=== PATIENT | male | born 1945 | race Caucasian/White ===

== ENCOUNTER 2023-12-26 10:01 | Outpatient (OUT) | payer MEDICARE, BC, SELFPAY ==
--- NOTE | 2023-12-23 13:13 | VEINCLINIC_ITS ---
Vital Signs 12/26/23 10:21 Height 5 ft 8 in Weight 95.254 kg BMI 31.9 BP 142/70 H BP Location Left Brachial BP Position Sitting BP Cuff Size Adult BP Source Manual Cuff Respiration 16 Pulse 65 Pulse Source Monitor Pulse Oximetry (%) 95 Oxygen Delivery Method Room Air Comment The patient's blood pressure is elevated. Varicose Veins Patient is an 78 year old male referred by Tyron Hoff NP at Dr. Hoyt's office secondary to venous insufficiency. Patient c/o bilateral leg edema. Patient denies pain or heaviness. Patient states the swelling has been happening for approximately one year. Patient has recently been seen by [facility] where he was administered bilateral leg compression stockings along with other compression devices. Patient states he then developed a wound to the right lower leg and was unable to wear the stockings due to wounds. Fuentes Mehta MD personally performed the services described in this documentation, as scribed by Carlos Castano RN in my presence and it is both accurate and complete. ICarlos RN, am scribing for, and in the presence of, Dr. Fuentes Hernandez and in the presence of the patient. . thigh: bilateral (edema is bilateral), knee: bilateral, calf: bilateral, ankle: bilateral and lynn: bilateral other (Patient denies pain/achiness) standing and sitting Reports edema and leg edema History of lower extremity trauma: No Superficial thrombophlebitis: No Family history of varicose veins: no Has patient had previous lower extremity venous surgery: No Patient has previously received the following treatment(s) for lower extremity varicose veins: Reports none Does patient have a history of : not applicable Has patient had lower extremity venous scan with relux testing: No Support hose used: Yes Problems walking or doing physical activity: No How does it affect you: edema led to wounds Do you walk much: Yes Do you stand much: Yes Review of Systems 2 ROS Narrative Fuentes Mehta MD personally performed the services described in this documentation, as scribed by Carlos Castano RN in my presence and it is both accurate and complete. Carlos Mehta RN, am scribing for, and in the presence of, Dr. Fuentes Hernandez and in the presence of the patient. Status of ROS 10 or more systems reviewed and unremark able except as noted in history and below Cardiovascular Reports: edema Integumentary/Breast Reports: redness, skin swelling and changes in skin color Neurological Reports: weakness in extremities Hematologic/Lymphatic Reports: easy bruising and easy bleeding PFSH [facility] Medical History (Updated 12/26/23 @ 12:54 by Carlos Castano) Pain due to varicose veins of both lower extremities ?I83.813 - Varicose veins of bilateral lower extremities with pain (ICD-10) Type 2 diabetes mellitus ?E11.9 - Type 2 diabetes mellitus without complications (ICD-10) Primary hypertension ?I10 - Essential (primary) hypertension (ICD-10) Peripheral vascular disease due to secondary diabetes mellitus ?E13.51 - Other specified diabetes mellitus with diabetic peripheral angiopathy without gangrene (ICD-10) Carotid arterial disease ?I77.9 - Disorder of arteries and arterioles, unspecified (ICD-10) Obesities, morbid ?E66.01 - Morbid (severe) obesity due to excess calories (ICD-10) Hypertensive heart disease ?I11.9 - Hypertensive heart disease without heart failure (ICD-10) Dyslipidemia ?E78.5 - Hyperlipidemia, unspecified (ICD-10) Chronic pain ?G89.29 - Other chronic pain (ICD-10) Chronic osteoarthritis ?M19.90 - Unspecified osteoarthritis, unspecified site (ICD-10) Carpal tunnel syndrome ?G56.00 - Carpal tunnel syndrome, unspecified upper limb (ICD-10) Benign prostate hyperplasia ?N40.0 - Benign prostatic hyperplasia without lower urinary tract symptoms (ICD-10) Atherosclerotic heart disease of [place] coronary artery without angina pectoris ?I25.10 - Atherosclerotic heart disease of [place] coronary artery without angina pectoris (ICD-10) Amyloidosis ?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 - Amyloidosis, unspecified (ICD-10) Obstructive sleep apnea ?G47.33 - Obstructive sleep apnea (adult) (pediatric) (ICD-10) Venous (peripheral) insufficiency ?I87.2 - Venous insufficiency (chronic) (peripheral) (ICD-10) Surgical History (Updated 12/26/23 @ 10:30 by Carlos Castano) H/O bilateral hip replacements ?Z96.643 - Presence of artificial hip joint, bilateral (ICD-10) H/O heart artery stent ?Z95.5 - Presence of coronary angioplasty implant and graft (ICD-10) Family History (Updated 12/26/23 @ 10:31 by Carlos Castano) Father Family history of myocardial infarction Other Family history of diabetes mellitus Family history of hypertension Social History (Updated 12/23/23 @ 13:36 by Carlos Castano) Within the past year, how often did you have a drink containing alcohol: monthly or less Smoking status: Former smoker What tobacco products do you use: cigarettes Packs per day: 1 Cigarettes per day: 20 Years smoked: 10 Smoking pack-years: 10.00 Second hand tobacco smoke exposure: No Non-prescribed substance use: denies use Meds Home Medications and Allergies Home Medications ?Medication ?Instructions ?Recorded ?Confirmed ?Type acetaminophen 650 mg 650 mg PO Q8H PRN pain 12/23/23 12/23/23 History tablet,extended release (8 Hour Pain Reliever) aspirin 81 mg tablet,delayed 81 mg PO DAILY 12/23/23 12/23/23 History release (Adult Aspirin Regimen) atorvastatin 80 mg tablet 80 mg PO DAILY 12/23/23 12/23/23 History cholecalciferol (vitamin D3) 100 100 mcg PO DAILY 12/23/23 12/23/23 History mcg (4,000 unit) tablet empagliflozin 25 mg tablet 25 mg PO DAILY 12/23/23 12/23/23 History (Jardiance) esripfdtfey-nthwt-jkv-vit C-Mn 500 tab PO 12/23/23 History mg-400 mg-166.6 mg tablet (Flexi Joint) indapamide 2.5 mg tablet 2.5 mg PO DAILY 12/23/23 12/23/23 History ipratropium bromide 21 mcg (0.03 2 spray intranasal TID 12/23/23 12/23/23 History %) nasal spray lisinopril 40 mg tablet 40 mg PO DAILY 12/23/23 12/23/23 History magnesium oxide 400 mg (241.3 mg 400 mg PO BID 12/23/23 12/23/23 History magnesium) tablet metformin 1,000 mg tablet,extended 1,000 mg PO BID 12/23/23 12/23/23 History release 24hr (osmotic) metoprolol tartrate 25 mg tablet 12.5 mg PO BID 12/23/23 12/23/23 History multivitamin (Daily Multi-Vitamin 1 tab PO DAILY 12/23/23 12/23/23 History tablet) nystatin 100,000 unit/gram topical 1 applic topical BID 12/23/23 12/23/23 History powder (Klayesta) pyridoxine (vitamin B6) 100 mg 50 mg PO DAILY 12/23/23 12/23/23 History tablet sennosides 8.6 mg-docusate sodium 1 tab-cap PO DAILY 12/23/23 12/23/23 History 50 mg tablet (Colace 2-In-1) tadalafil 20 mg tablet (Cialis) 20 mg PO DAILY PRN sexual activity 12/23/23 12/23/23 History tamsulosin 0.4 mg capsule (Flomax) 0.4 mg PO DAILY 12/23/23 12/23/23 History tramadol 50 mg tablet 25 mg PO Q6H PRN pain 12/23/23 12/23/23 History Allergies Allergy/AdvReac Type Severity Reaction Status Date / Time meperidine Allergy Abdominal Verified 12/23/23 13:33 Pain midazolam Allergy Hives Verified 12/23/23 13:33 Exam Narrative Exam Narrative: Fuentes Mehta MD personally performed the services described in this documentation, as scribed by Carlos Castano RN in my presence and it is both accurate and complete. Carlos Mehta RN, am scribing for, and in the presence of, Dr. Fuentes Hernandez and in the presence of the patient. Constitutional Documenting provider has reviewed patient's vital signs: yes Common normals: oriented x3 Nutritional appearance: overweight Cardio Peripheral pulses: posterior tibial pulses present and dorsalis pedis pulses present Extremity Common normals: normal capillary refill General: calf tenderness and edema Right lower extremity: lower leg Right lower leg: inspection and palpation Left lower extremity: lower leg Left lower leg: inspection and palpation Neuro Common normals: oriented x3 Results Additional Findings Additional findings: Bilateral leg reflux u/s reveals moderate right great saphenous insufficiency with dilatation along with bilateral leg branch saphenous truncal tributay varicose veins. Fuentes Metha MD personally performed the services described in this documentation, as scribed by Carlos Castano RN in my presence and it is both accurate and complete. Carlos Mehta RN, am scribing for, and in the presence of, Dr. Fuentes Hernandez and in the presence of the patient. Assessment and Plan Assessment and Plan (1) Venous (peripheral) insufficiency: (2) Pain due to varicose veins of both lower extremities: Plan Plan is for patient to continue use of bilateral leg compression stockings, rest, and exercise. Patient to return for EVLT of right GSV followed by microfoam chemical ablation bilateral leg branch saphenous varicosities. IFuentes MD personally performed the services described in this documentation, as scribed by Carlos Castano RN in my presence and it is both accurate and complete. ICarlos RN, am scribing for, and in the presence of, Dr. Fuentes Hernandez and in the presence of the patient.
--- NOTE | 2023-12-23 13:37 | P.DS_ITS ---
Discharge Plan Discharge Disposition: Home, Self-Care Outpatient Diagnostics: VC Endovenous Ablation 1VeinRT (Routine) Timeframe: 2 Months Facility: [facility] - Location: Vein Center Ordered By: Fuentes Hernandez Plan of Treatment: EVLT of right GSV Patient Instructions: Endovenous Ablation (GEN) Print Language: Syriac Discharge Date/Time: 12/26/23 15:49
--- NOTE | 2023-12-26 10:03 | VEIN_ITS ---
Patient Name: JOHN SCHMITT MR#: [id number] : 1945 Exam Date: 12/26/2023 Ordering Doctor: DR FUENTES HERNANDEZ M.D. RADIOLOGY REPORT PROCEDURE: VC EXT VENOUS REFLUX ROSEMARIE LMTD COMPARISON: None. INDICATIONS: I83.813 Bilateral leg painful varicose veins TECHNIQUE: Duplex imaging of the lower extremity to assess the deep and superficial venous system for the presence of deep or superficial venous incompetence and to document the location and severity of disease. The study includes evaluation of the great saphenous vein (GSV), anterior accessory saphenous vein (AASV) and small saphenous vein (SSV). Patient scanned in reverse Trendelenburg and standing. FINDINGS: RIGHT LOWER EXTREMITY: Saphenofemoral Junction Reflux: Yes 7.2mm 0.7 sec GSV: Diam (mm) Reflux/ Time (sec) Proximal Thigh 7.4 Yes 1.5 Mid Thigh 3.3 Yes 2.1 Distal Thigh 3.8 Yes 3.3 Prox Calf 4.4 Yes 0.9 Mid Calf 4.4 Yes 0.3 Saphenopopliteal Junction Reflux: 2.8mm Yes 3.0 SSV: Proximal Calf 4.0 Yes 2.8 Mid Calf 3.8 Yes 0.6 AASV: Not present Thrombi: Partial thrombus in popliteal and distal PTV/perf. Compressibility: Partial compression in popliteal and distal PTV. Flow: Moderate venous reflux in popliteal vein. Preforator: Proximal/medial lower leg 2.9 mm, 1.6s reflux. Prox/posterior lower leg 3.3 mm with 0.7s reflux. Tech Note: Incompetent varicose vein mid medial thigh measures 4.4 mm with 4.0s reflux. Varicose vein distal medial lower leg measures 4.1 mm with 0.7s reflux. LEFT LOWER EXTREMITY: Saphenofemoral Junction Reflux: Yes 5.4 mm 1.2 sec GSV: Diam (mm) Reflux/Time (sec) Proximal Thigh 3.9 No Mid Thigh 4.6 Yes 0.4 Distal Thigh 4.4 No Prox Calf 4.0 Yes 0.4 Mid Calf 3.5 Yes 1.6 Saphenopopliteal Junction Relux: 3.2 mm Yes 0.4 SSV: Proximal Calf 3.2 Yes 0.4 Mid Calf 3.8 No AASV: Not present Thrombi: Chronic partial thrombus in distal popliteal vein. Compressibility: Partial compression on popliteal vein. Flow: Severe deep venous reflux. Machine Heddle Cleaner: Prox/medial lower leg 3.4 mm with 1.6s reflux. Distal medial lower leg 7.0 mm with 2.0s reflux. Tech Note: Incompetent varicose vein off of custodian supervisor distal medial lower leg measures 6.2 mm with 0.7s reflux. Varicose vein proximal medial lower leg measures 4.6 mm with 0.5s reflux. CONCLUSION: 1. Moderate right great saphenous vein venous insufficiency with dilatation and saphenofemoral junction reflux 2. Moderate right small saphenous vein venous insufficiency with saphenous popliteal junction reflux but no dilatation 3. Nonocclusive , likely chronic, thrombus bilateral popliteal and right distal posterior tibial vein 4. Moderate right and severe left deep vein reflux 5. Bilateral incompetent varicose veins Dictated by: Fuentes Hernandez MD on 12/26/2023 at 11:30 Approved by: Fuentes Hernandez MD on 12/26/2023 at 11:33
--- NOTE | 2023-12-26 10:04 | VEIN_ITS ---
Patient Name: JOHN SCHMITT MR#: [id number] : 1945 Exam Date: 12/26/2023 Ordering Doctor: DR FUENTES CANTRELL M.D. RADIOLOGY REPORT PROCEDURE: [facility] - OFFICE VISIT INITIAL COMPARISON: None. PROGRESS NOTES: 78-year-old male sent by Dr. Mello with a 5-6 year history of lower extremity pain swelling and hemosiderin staining, significantly increased over the past year. The patient bumped his right lower anterior leg developing a 2 cm wound very slow healing. The patient described leakage water out of the wound for significant period of time. The wound has successfully sealed in the past several weeks. The patient had a similar episode on the left leg 1 year ago. The patient does exercise daily on a stationary bike for 30-40 minutes every morning. The patient has worn compression stockings for several months with only minimal improvement. 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 The patient describes an improvement with compression stockings and leg elevation. The patient denies any signs and symptoms to suggest arterial ischemia. The patient describes a family history significant for myocardial infarction, hypertension and diabetes. The patient is drinks alcohol approximately 1 time per month. The patient has a 10 year pack year history discontinuing in 1974. Current medical history is significant for type 2 diabetes, primary hypertension, peripheral vascular disease, hypertensive heart disease, atherosclerotic heart disease and venous insufficiency. Past surgical history significant for heart stent in bilateral hip replacements. No history of deep venous thrombus or pulmonary embolus. See separate history and physical for medication list. No prior treatment for varicose or spider veins. Nursing notes were reviewed. After history and physical exam I discussed at length the pathophysiology of venous hypertension and possible treatments, therapies and strategies available. We discussed at length the importance of elevating the lower extremities above the level of the heart, increased physical activity and compression stocking use. We discussed conservative therapy with bilateral near thigh-high compression stockings. This will be required for control of his deep vein reflux. We discussed surgical interventions of ligation and stripping and phlebectomy. We discussed intravenous laser ablation, micro foam chemical ablation and injection sclerotherapy. Risks benefits and alternatives were discussed with the patient and his . Patient's questions were answered I did discuss with the patient that his swelling was likely multifactorial and related to hypertension, diabetes as well as venous insufficiency. Treatment of his veins should result in some improvement but likely would not completely resolve his swelling. Ultrasound venous reflux study performed the same day was discussed at length with the patient. The report demonstrates moderate to severe right great saphenous vein venous insufficiency. Moderate right small saphenous vein venous insufficiency. Moderate right and severe left deep vein reflux. Bilateral incompetent varicose veins. Bilateral nonocclusive deep vein thrombus PHYSICAL EXAM: The right leg demonstrates moderate subcutaneous edema below the knee. Moderate hemosiderin staining and skin thickening. A 1.5 cm wound along the mid lynn is sealed. Mild varicose reticular and spider veins The left leg demonstrates moderate subcutaneous edema below the knee. Moderate hemosiderin staining and skin thickening. A 1.5 cm wound along the mid lynn is sealed. Mild varicose reticular and spider veins Both thighs, legs and feet were symmetrically warm to the touch. Good posterior tibial and dorsalis pedis pulses were present bilaterally. VEIN/VC Facility NEW Comprehensive IMPRESSION: 1. Moderate to severe right great saphenous vein, moderate right small saphenous vein venous insufficiency venous insufficiency . Moderate to severe bilateral deep vein reflux 2. Moderate bilateral lower extremity varicose veins 3. Severe bilateral lower extremity subcutaneous edema with extensive hemosiderin staining and healing right venous stasis ulceration 4. No definite flow significant arterial disease period bilateral nonocclusive deep vein thrombus 5. CEAP: C6, Ep, Asp, Pr PLAN: 1. Endovenous laser ablation right great saphenous vein 2. Micro foam chemical ablation bilateral incompetent varicose veins 3. Bilateral 20-30 mm thigh or knee high compression stockings 4. Elevated legs in continued physical activity for symptomatic relief Nurse notes, history and physical were reviewed and confirmed, see attached forms. The nurse was present throughout the physical exam and consultation Dictated by: Fuentes Cantrell MD on 12/26/2023 at 12:17 Approved by: Fuentes Cantrell MD on 12/26/2023 at 12:30
[2023-12-26 10:21] VITALS: BP 142/70; PULSE 65; O2SAT 95; BMI 31.9
--- NOTE | 2023-12-26 11:42 | W.VEIN ---
Discharge Plan Discharge Disposition: Home, Self-Care Outpatient Diagnostics: VC Endovenous Ablation 1VeinRT (Routine) Timeframe: 2 Months Facility: [facility] - Location: Vein Center Ordered By: Fuentes Hernandez Plan of Treatment: EVLT of right GSV Patient Instructions: Endovenous Ablation (GEN) Print Language: Occitan
== END 2023-12-26 15:49 | disposition home or self-care (01) ==
PROVIDERS: PCP Radiology Diagnostic Radiology; Visit Provider Radiology Diagnostic Radiology
DX: I87.2 Venous insufficiency (chronic) (peripheral) (principal); I83.813 Varicose veins of bilateral lower extremities with pain
CPT/HCPCS: 93970; G0463